=== PATIENT | male | born 1980 | race Caucasian/White ===

== ENCOUNTER 2024-05-19 09:25 | Emergency (ER) | payer OTHER ==
[~2024-05-19] VITALS: Ht 167.6 cm; Wt 63.5 kg
[2024-05-19 09:34] VITALS: BP 146/77; PULSE 69; RESP 20; TEMP 97.3; O2SAT 98
[2024-05-19] MEDS ORDERED: OMEP40EC24 PO (10:54)
[2024-05-19] MEDS ORDERED: ONDA-188 PO (10:54)
== END 2024-05-19 11:19 | disposition home or self-care (01) ==
LOC: MED 09:25
DX: K21.9 Gastro-esophageal reflux disease without esophagitis (principal); Z90.49 Acquired absence of other specified parts of digestive tract; Z79.899 Other long term (current) drug therapy; Z88.0 Allergy status to penicillin
CPT/HCPCS: 99283